=== PATIENT | female | born 1965 | race Caucasian/White ===

== ENCOUNTER 2017-04-07 17:32 | Emergency (ER) | payer BC ==
[2017-04-07 18:32] VITALS: BP 131/72
[2017-04-07] MEDS ORDERED: Triamcinolone Acetonide* 40 MG/ML 1 ML VIAL IM ONE (19:51)
--- NOTE | 2017-04-07 19:58 | UC ---
Skin Complaint HPI - HPI Summary HPI Summary: 51 yo female with bilateral antecubital fossa rash x 2 weeks pruritic - History of Current Complaint Chief Complaint: UCRash Time Seen by Provider: 04/07/17 19:46 Stated Complaint: SKIN COMPLAINT Hx Obtained From: Patient Onset/Duration: Gradual Onset, Lasting Weeks Onset Severity: Mild Current Severity: Mild Pain Intensity: 0 Pain Scale Used: 0-10 Numeric Associated Signs & Symptoms: Positive: Rash - Allergy/Home Medications Allergies/Adverse Reactions: Allergies Allergy/AdvReac Type Severity Reaction Status Date / Time No Known Allergies Allergy Verified 04/07/17 18:28 Home Medications: Home Medications NK [No Home Medications Reported] 04/07/17 [History Confirmed 04/07/17] Review of Systems Constitutional: Negative Skin: Rash Eyes: Negative ENT: Negative Respiratory: Negative Cardiovascular: Negative Gastrointestinal: Negative Genitourinary: Negative Motor: Negative Neurovascular: Negative Musculoskeletal: Negative Neurological: Negative Psychological: Negative All Other Systems Reviewed And Are Negative: Yes PMH/Surg Hx/FS Hx/Imm Hx Previously Healthy: Yes - Surgical History Surgical History: None - Family History Known Family History: Positive: Hypertension - Social History Alcohol Use: Occasionally Substance Use Type: None Smoking Status (MU): Heavy Every Day Tobacco Smoker Type: Cigarettes Amount Used/How Often: 1/2 pack day Physical Exam Triage Information Reviewed: Yes Appearance: Well-Appearing, No Pain Distress, Well-Nourished Vital Signs: Initial Vital Signs Temp 98.6 F 04/07/17 18:28 Pulse 67 04/07/17 18:28 Resp 16 04/07/17 18:28 BP 131/72 04/07/17 18:28 Pulse Ox 100 04/07/17 18:28 Vital Signs Reviewed: Yes Eyes: Positive: Conjunctiva Clear ENT: Positive: Hearing grossly normal. Negative: Nasal congestion, Nasal drainage, Trismus, Muffled/hoarse voice Neck: Positive: Supple, Nontender Respiratory: Positive: Lungs clear, Normal breath sounds, No respiratory distress, No accessory muscle use Cardiovascular: Positive: RRR, No Murmur Musculoskeletal: Positive: ROM Intact, No Edema Neurological: Positive: Alert Skin: Positive: rashes - bilateral antecubital rash c/w contact dermatitis Course/Dx - Diagnoses Provider Diagnoses: contact dermatitis Discharge - Discharge Plan Condition: Stable Disposition: HOME Patient Education Materials: Contact Dermatitis (ED) Referrals: [facility] [Outside] (your BP was a little high (prehypertensive) and should be followed) Additional Instructions: recheck next week if not better
== END 2017-04-07 20:21 | disposition home or self-care (01) ==
LOC: UCCORT 17:32
DX: L25.9 Unspecified contact dermatitis, unspecified cause (principal); F17.210 Nicotine dependence, cigarettes, uncomplicated
CPT/HCPCS: 96372; 99211; G0463; J3301